=== PATIENT | female | born 1975 | race Caucasian/White ===

== ENCOUNTER 2019-09-15 20:53 | Inpatient (IN) | payer OTHER, SELFPAY ==
[2019-09-15] MEDS ORDERED: Lactated Ringer's 1,000 ML IV SCH (21:50)
[2019-09-15] MEDS ORDERED: Butorphanol Tartrate 1 MG/ML VIAL SLOW IVP PRN (21:50)
[2019-09-15] MEDS ORDERED: Ondansetron PF 4 MG/2 ML Vial IVP PRN (21:50)
[2019-09-15] MEDS ORDERED: Promethazine HCl 25 MG/ML VIAL IM PRN (21:50)
[2019-09-15] MEDS ORDERED: Acetaminophen 500 MG TAB PO PRN (21:50)
[2019-09-15] MEDS ORDERED: hydrALAZINE 20 MG/ML VIAL SLOW IVP PRN (21:50)
[2019-09-15] MEDS ORDERED: Lactated Ringer's 1,000 ML IV PRN (21:51)
[2019-09-15 21:57] LABS: Hemoglobin 12.9 g/dL (12.0-16.0); Mean Corpuscular HGB CONC 33.7 g/dL (32.0-36.0); Mean Corpuscular Hemoglobin 30.9 pg (27.0-31.0); Mean Corpuscular Volume 91.8 fL (78.0-98.0); Platelet Count 208 thou/uL (130-400); RBC Distribution Width 12.1 % (11.5-14.5); Red Blood Cell (RBC) Count 4.18 mill/uL (4.20-5.40); White Blood Cell (WBC) Count 15.5 thou/uL (4.8-10.8)
[2019-09-15] MEDS ORDERED: Fentanyl 4 mcg/Bup 0.1% Cadd 100 ML ONE (22:23)
[2019-09-15 22:36] LABS: Syphilis Antibody Nonreactive (Nonreactive); Syphilis Antibody Index 0.05 S/CO (<1.00 Non-Reactive)
[2019-09-15 23:08] VITALS: BMI 26.7
[2019-09-15 23:08] LABS: HBSAg Index 0.15 S/CO (0-0.99); Hep B Surf Ag Non-Reactive S/CO (NonReactive)
[2019-09-16] MEDS ORDERED: NS / Oxytocin 40 units/1000ml 1,000 ML ONE (00:08)
[2019-09-16] MEDS ORDERED: Zolpidem Tartrate 5 MG TAB PO PRN (00:31)
[2019-09-16] MEDS ORDERED: Benzocaine-Menthol 82.5 ML CAN TOP PRN (00:31)
[2019-09-16] MEDS ORDERED: Bisacodyl 10 MG SUPP PR PRN (00:31)
[2019-09-16] MEDS ORDERED: Milk Of Magnesia 30 ML UDCUP PO PRN (00:31)
[2019-09-16] MEDS ORDERED: Misoprostol 200 MCG TAB VAG PRN (00:31)
[2019-09-16] MEDS ORDERED: Lanolin Ointment 7 GM TUBE TOP PRN (00:31)
[2019-09-16] MEDS ORDERED: hydrALAZINE 20 MG/ML VIAL SLOW IVP PRN (00:31)
[2019-09-16] MEDS ORDERED: Preparation H Ointment 57 gram tube RC PRN (00:31)
[2019-09-16] MEDS ORDERED: Acetaminophen/Codeine 30-300mg Tablet PO PRN ×2 (00:31)
[2019-09-16] MEDS ORDERED: Ondansetron PF 4 MG/2 ML Vial IVP PRN (00:31)
[2019-09-16] MEDS ORDERED: NS / Oxytocin 40 units/1000ml 1,000 ML IV SCH (00:45)
[2019-09-16] MEDS: Ibuprofen 800 MG TAB PO SCH ×3 (05:50→21:10)
[2019-09-16] MEDS: Ferrous Sulfate 325 MG TAB PO SCH ×2 (08:13→16:35)
[2019-09-16] MEDS ORDERED: Adacel (T-DAP) 0.5 ML SYRINGE IM ONE (09:00)
[2019-09-16] MEDS: Prenatal Vitamin 1 TAB PO SCH (09:38)
[2019-09-16] MEDS: Docusate Calcium (SURFAK) 240 MG CAP PO SCH ×2 (09:38→21:10)
[2019-09-17] MEDS: Ibuprofen 800 MG TAB PO SCH (05:10)
[2019-09-17 08:16] VITALS: BP 103/53; TEMP 97.8
[2019-09-17] MEDS: Ferrous Sulfate 325 MG TAB PO SCH (09:12)
[2019-09-17] MEDS: Prenatal Vitamin 1 TAB PO SCH ×2 (09:34→09:36)
[2019-09-17] MEDS: Docusate Calcium (SURFAK) 240 MG CAP PO SCH (09:35)
== END 2019-09-17 11:43 | disposition home or self-care (01) | DRG 807 ==
LOC: L&D/OP 20:53 → L&D 21:42 → 3SW 09-16 04:12
PROVIDERS: ADMIT Obstetrics & Gynecology; ATTEND Obstetrics & Gynecology
PROC: 10E0XZZ Delivery of Products of Conception, External Approach (ICD-10-PCS; principal; 2019-09-16)
DX: O80 Encounter for full-term uncomplicated delivery (principal); Z37.0 Single live birth; Z3A.38 38 weeks gestation of pregnancy
CPT/HCPCS: 36415; 51702; 85027; 86780; 86850; 86900; 86901; 87340; 99285